=== PATIENT | female | born 1950 | race Caucasian/White ===

== ENCOUNTER 2016-08-22 13:18 | Inpatient (IN) | payer OTHER ==
[~2016-08-22] VITALS: Ht 165.1 cm; Wt 49.7 kg
--- NOTE | 2016-08-22 13:31 | NUR ---
BROUGHT IN BY AMBULANCE ALS, PER PARAMEDICS PT HAD SEIZURE ACTIVITY, WITNESSED BY FAMILY AND EMS,WAS GIVEN VERSED, ON ARRIVAL UNRESOPNSIVE ,PER PARAMEDICS FIRE STATED PT WAS MOVING ALL HER EXTREMITIES PRIOR TO SEIZURES,HAD 3 WITTNESSED SEIZURES,
--- NOTE | 2016-08-22 13:34 | NUR ---
TO CT SCAN
--- NOTE | 2016-08-22 13:40 | NUR ---
BESIDES BED, STATED SINCE FEBRUARY 2016 STARTED TO LOOSE HER HEARING
[2016-08-22 14:07] LABS: BASOPHIL % 0.3 % (0-2)
[2016-08-22 14:09] LABS: PLATELET COUNT 69 x10^3mcL (130-400)
--- NOTE | 2016-08-22 14:12 | NUR ---
RESONDS TO PAINFUL STIMULIBY WITHDRAWAL,
--- NOTE | 2016-08-22 14:13 | NUR ---
PRAKASH CATHETER INSERTED URINE SENT TO LAB
[2016-08-22 14:15] LABS: CALCIUM 7.9 mg/dL (8.5-10.1); CARBON DIOXIDE 21.3 mmol/L (21-32); CHLORIDE SERUM 98 mmol/L (98-107); CREATININE SERUM 0.7 mg/dL (0.6-1.0); GFR1 > 60 mL/min; GLUCOSE SERUM 257 mg/dL (74-106); POTASSIUM SERUM 3.8 mmol/L (3.5-5.1); SODIUM SERUM 131 mmol/L (136-145)
[2016-08-22 14:17] LABS: microscopic required? NO
[2016-08-22 14:19] LABS: ALKALINE PHOSPHATASE 87 U/L (46-116); ALT/SGPT 32 U/L (14-59); AST/SGOT 26 U/L (15-37); BILIRUBIN TOTAL 0.89 mg/dL (0.20-1.00)
[2016-08-22 14:25] LABS: ALBUMIN 2.5 g/dL (3.4-5.0); TOTAL PROTEIN, SERUM 5.7 g/dL (6.4-8.2)
[2016-08-22 14:26] LABS: CHOLESTEROL 90 mg/dL (<200)
[2016-08-22 14:49] LABS: UA SPECIFIC GRAVITY 1.015 (1.005-1.035); urine erythrocyte NEGATIVE (NEGATIVE)
[2016-08-22 14:57] LABS: T4(THYROXINE) 8.8 ug/dL (4.7-13.3)
[2016-08-22 15:09] LABS: AMPHETAMINE QUAL UR NONE DETECTED (NEG <=1000)
--- NOTE | 2016-08-22 15:57 | NUR ---
MORE AWAKE ALND ALERT, DOES NOT FOLLOW VERBAL COMMANDS, PER MILDRED DOES NOT HEAR,OPENS EYES SPONTANOUSLY
[2016-08-22] MEDS ORDERED: PROTONIX40 MG PO (16:22)
[2016-08-22] MEDS ORDERED: LEVOTHYROXIN0.025 M2 PO (16:23)
[2016-08-22] MEDS ORDERED: GLIMEPIRIDE1 M1 PO (16:23)
[2016-08-22] MEDS ORDERED: LASIX40 MG PO (16:23)
[2016-08-22] MEDS ORDERED: ALDACTONE25 MG PO (16:23)
[2016-08-22] MEDS ORDERED: KLOR-CON M1010 MEQ PO (16:24)
[2016-08-22] MEDS ORDERED: LACTULOSE10 GM/152 PO (16:25)
[2016-08-22 17:00] VITALS: BP 103/54
--- NOTE | 2016-08-22 17:15 | NUR ---
RECEIVED PT FROM ED VIA R[place]D. ORIENTED PT TO ROOM AND SURROUNDINGS. IV NOTED TO RIGHT WRIST PATENT AND INTACT. TELE 35 PLACED ON PT READING NSR. INSTRUCTED PT ON THE USE OF CALL LIGHT FOR ASSISTANCE. ENDORSD PT TO PRIMARY NURSE FRANKI
[2016-08-22 17:22] LABS: CHOLESTEROL/HDL RATIO 1.8; MAGNESIUM 1.6 mg/dL (1.8-2.4)
[2016-08-22 17:29] LABS: FREE T4 1.61 ng/dL (0.76-1.46); FREE THYROXINE INDEX 3.1 ug/dL (1.4-4.5); T4(THYROXINE) 8.4 ug/dL (4.7-13.3)
[2016-08-22 17:30] LABS: T3 TOTAL 0.51 ng/mL
[2016-08-22 17:34] VITALS: BP 103/54
--- NOTE | 2016-08-22 19:10 | NUR ---
REC'D PT RESTING IN BED. PT IS APHASIC. UNABLE TO FOLLOW COMMAND AND HOULTON. TELE #35 NSR. NO DISTRESS NOTED. NO SIGNS OF PAIN NOTED. LUNG SOUNDS CLEAR. NO SOB NOTED. BS ACTIVE X4. PRAKASH CATHETER IN PLACE DRAINING YELLOW URINE. PT ON AIR MATTRESS. IVF INFUSING TO RW PER DOCTOR'S ORDER. INTACT AND PATENT. SAFETY AND COMFORT MEASURES IN PLACE. BED IN LOWEST POSITION. CALL LIGHT WITHIN REACH. WILL CONTINUE TO MONITOR.
--- NOTE | 2016-08-22 19:30 | NUR ---
REC'D CALL FROM LAB. PT'S LACTIC ACID = 2.3. DR MALDONADO MADE AWARE.
[2016-08-22 21:27] VITALS: BP 105/56
--- NOTE | 2016-08-22 22:42 | NUR ---
REC'D CALL FROM LAB. PT'S 2ND TROPONIN = 4.303. DR MALDONADO MADE AWARE.
--- NOTE | 2016-08-23 01:33 | NUR ---
PT MOANING/GROANING WITH FACIAL GRIMACING. TORADOL 15 MG IV WAS GIVEN (SEE MAR).
--- NOTE | 2016-08-23 03:30 | NUR ---
PT'S AND SON ARE AT BEDSIDE. DR MALDONADO ORDERED HEPARIN DRIP FOR ELEVATED TROPONIN. PT'S AND SON ARE CONCERNED HEPARIN MAY CAUSE DAMAGE TO PT DUE TO POSSIBILITY OF STROKE. AND SON WISH TO SPEAK TO A DOCTOR FOR FURTHER QUESTIONS. DR MALDONADO MADE AWARE.
--- NOTE | 2016-08-23 04:00 | NUR ---
HEPARIN DRIP IS NOT STARTED PER FAMILY'S REQUESTS. DR MALDONADO IS AWARE.
--- NOTE | 2016-08-23 04:54 | NUR ---
PT RESTING IN BED. NO DISTRESS NOTED. IVF INFUSING WELL. CALL LIGHT WITHIN REACH. WILL CONTINUE TO MONITOR.
[2016-08-23 05:23] VITALS: BP 118/56
[2016-08-23 06:39] LABS: BASOPHIL % 0.2 % (0-2); CALCIUM 8.1 mg/dL (8.5-10.1); CARBON DIOXIDE 28.1 mmol/L (21-32); CHLORIDE SERUM 103 mmol/L (98-107); CREATININE SERUM 0.6 mg/dL (0.6-1.0); GFR1 > 60 mL/min; GLUCOSE SERUM 117 mg/dL (74-106); MAGNESIUM 2.1 mg/dL (1.8-2.4); PHOSPHOROUS 3.3 mg/dL (2.5-4.9); POTASSIUM SERUM 3.3 mmol/L (3.5-5.1); SODIUM SERUM 137 mmol/L (136-145)
--- NOTE | 2016-08-23 07:05 | NUR ---
RECEIVED REPORT FROM NEO ROUSSEAU RN. PATIENT RESTING IN BED WITH EYES CLOSED, TELE # [address] ON ROOM AIR, NO DISTRESS NOTED, LUNGS CTA. PRAKASH IN PLACE DRAINING YELLOW URINE. ON AIR MATTRESS. IV TO RIGHT WRIST IN PLACE. FAMILY AT THE BEDSIDE.
[2016-08-23 07:11] LABS: PLATELET COUNT 59 x10^3mcL (130-400)
--- NOTE | 2016-08-23 08:04 | NUR ---
ROUNDS MADE THIS TIME. DR. CORDERO, RESIDENT TEAM, COUNTY ADMINISTRATOR MANUEL, PRIMARY RN, , AND SON AT THE BEDSIDE. PLAN OF CARE IS DISCUSSED. QUESTIONS AND CONCERNS ADDRESSED. FAMILY WILL NOTIFY RN OF DECISION TO INITIATE HEPARIN DRIP.
--- NOTE | 2016-08-23 08:50 | NUR ---
REPORTED TO DR. CARPIO K 3.3 AT THIS TIME.
--- NOTE | 2016-08-23 09:35 | NUR ---
NOTIFIED DR. CARPIO BP 104/53, OK TO HOLD AM BP MEDS AT THIS TIME (SEE EMAR). ALSO REPORTED TO DR. CARPIO THE PATIENT'S FAMILY DECIDED TO INITIATE THE HEPARIN DRIP.
[2016-08-23 09:40] VITALS: Ht 165.1 cm; Wt 49.7 kg
[2016-08-23 10:13] VITALS: BP 104/53
--- NOTE | 2016-08-23 10:30 | NUR ---
HEPARIN DRIP AT 600 UNITS/HR INITIATED AND HEPARIN BOLUS OF 3000 UNITS GIVEN AT THIS TIME. VERIFIED BY LILLIAN MACIAS. FAMILY IS AT THE BEDSIDE.
--- NOTE | 2016-08-23 11:46 | NUR ---
P.T. NOTES RECEIVED P.T. EVAL ORDER, HOLD P.T. EVAL TODAY; NURSE AWARE; PER CHART, ELEVATED TROPONIN; Pt's DAUGHTERS AT BEDSIDE, CONTACT ISOL PREC OBSERVED; FAMILY STATES Pt WAS AMBULATORY W/ FWW IN MAR 2016, THEN GRADUALLY DECLINED IN FUNCTION, HAS W/C, BSC, SHOWER CHAIR AT HOME, LIVES W/ & DAUGHTER, BEDROOM DOWNSTAIRS; CALL GRIFFITHS, PHONE, TABLE IN REACH; FOLLOW UP Thursday08/25/16. PVE
--- NOTE | 2016-08-23 14:32 | NUR ---
DR. CARPIO IN TO SEE PATIENT AND FAMILY TO DISCUSS PLAN OF CARE. ALL QUESTIONS AND CONCERNS ADDRESSED.
--- NOTE | 2016-08-23 17:17 | NUR ---
PTT 107.8. HEPARIN HELD AT THIS TIME, PER HEPARIN PROTOCOL.
--- NOTE | 2016-08-23 18:17 | NUR ---
HEPARIN DRIP RESTARTED AT THIS TIME. NOW INFUSING AT 400 UNITS PER HR.
[2016-08-23 18:25] VITALS: BP 104/52
--- NOTE | 2016-08-23 19:00 | NUR ---
REC'D PT RESTING IN BED WITH FAMILY AT BEDSIDE. PT IS APHASIC AND [place]. NOT ABLE TO MAKE NEEDS KNOWN. SEIZURE PRECAUTION IN PLACE. TELE #35 NSR. NO SIGNS OF PAIN OR DISCOMFORT NOTED. LUNG SOUNDS CLEAR. NO SOB NOTED. PRAKASH CATHETER IN PLACE. PT IS ON AIR MATTRESS. BEDBOUND. BLANCHABLE REDNESS TO COCCYX. HEP DRIP INFUSING TO RW AT 400 UNITS/HR. INTACT AND PATENT. SAFETY AND COMFORT MEASURES IN PLACE. NEUTROPENIC PRECAUTION IN PLACE. BED IN LOWEST POSITION. CALL LIGHT WITHIN REACH. WILL CONTINUE TO MONITOR.
--- NOTE | 2016-08-23 19:35 | NUR ---
REC'D CALL FROM LAB. TROPONIN 1.[address] BHARDWAJ MADE AWARE.
--- NOTE | 2016-08-23 19:41 | NUR ---
HEPARIN DRIP DC'D ORDERED.
[2016-08-23 20:45] VITALS: BP 111/52
--- NOTE | 2016-08-23 20:46 | NUR ---
FAMILY REPORTS PT IS IN PAIN AND REQUESTING PAIN MEDS. NORCO WAS GIVEN (SEE MAR).
--- NOTE | 2016-08-24 01:10 | NUR ---
PT MOANING/GROANING. MEDICATED PT WITH MORPHINE 2MG IVP (SEE MAR). WILL CONTINUE TO MONITOR.
--- NOTE | 2016-08-24 05:03 | NUR ---
PT RESTING IN BED IN NO ACUTE DISTRESS. IVF INFUSING WELL. CALL LIGHT WITHIN REACH. WILL CONTINUE TO MONITOR.
[2016-08-24 06:37] LABS: BASOPHIL % 0.6 % (0-2)
[2016-08-24 06:38] VITALS: BP 114/56
[2016-08-24 06:45] LABS: CALCIUM 8.1 mg/dL (8.5-10.1); CARBON DIOXIDE 21.7 mmol/L (21-32); CHLORIDE SERUM 109 mmol/L (98-107); CREATININE SERUM 0.6 mg/dL (0.6-1.0); GFR1 > 60 mL/min; GLUCOSE SERUM 75 mg/dL (74-106); MAGNESIUM 1.7 mg/dL (1.8-2.4); PHOSPHOROUS 3.2 mg/dL (2.5-4.9); POTASSIUM SERUM 3.6 mmol/L (3.5-5.1); SODIUM SERUM 142 mmol/L (136-145)
[2016-08-24 06:52] LABS: PLATELET COUNT 82 x10^3mcL (130-400); RED CELL DISTRIBUTION WIDTH 18.3 % (11.5-14.5)
--- NOTE | 2016-08-24 08:00 | NUR ---
RECIEVED PATIENT ALERT AND ORIENTED ONLY TO PERSON. BERENICE HAS FAMILY AT BEDSIDE AND THEY ARE INVOLVED IN HER CARE. PATIENT HAS BEEN SLEEPING WELL THROUGHOUT THE NIGHT. LUNGS ARE DIMMINISHED AND BOWEL SOUNDS ACTIVE. PATIENT HAS PRAKASH TO GRAVITY AND URINE IS OZZIE IN COLOR. CORNELIO HAS BEEDN IN REVERSE ISOLATION, NETROPENI. VITALS AT THIS TIME AT 98.2, 87, 16, 114/56, 99% ON ROOM AIR. NOTED LABS ARE PTTA T 107.8 AND HEPARIN WAS DISCONTINUED AND PLAVIX IS HELD DUE TO THE PLAN FOR SPINAL TAP. PATIENT AHS PLATLET COUGH OF 82 AND BLOOD SUGAR AT 83 THIS AM. PATIENT DOES NOT APPEAR TO BE IN PAIN AT THIS TIME. CONTINUE DON AIR MATTRESS. LEVAQUIN CONTINUED AND NO ADVERSE REACTION NOTED. CONTINUED ON IV FLUIDS ORDERED.
--- NOTE | 2016-08-24 08:15 | NUR ---
SEEN BY THE INTERNS AND RESIDENT. PLAN OF CARE DISCUSSED AND FAMILY WAS PRESWENT. PATIENT TO HAVE A HOLD ON THE PLAVIX FOR NOW.
[2016-08-24 09:55] VITALS: BP 126/66
--- NOTE | 2016-08-24 12:00 | NUR ---
INSULIN GIVEN PER SLIDING SCALE. PATIENT IS WITH FAMILY AT BEDSIDE AND PATIENT IS INSISTING TO HELP GIVE MEDICATIONS AND HE HAS ADVISED ABOUT HER PAIN TO THE RIGHT LEG AND HOW TO POSITION HER FOR COMFORT. PATIENT HAD RECEIVED MORPHINE PER THE REQUEST HE WANT THE STRONGEST MEDICATION FOR HER PAIN. SHE DOES APPEAR COMFORTABLE AT THIS TIME.
[2016-08-24 14:15] VITALS: BP 109/50
--- NOTE | 2016-08-24 14:25 | NUR ---
FAMILY WANTS TO KNOW WHAT THE LAST TROPONIN WAS. EXPLAINTED THAT ONLY THREE AWER DONE IN A ROW FOR VERIFICATION. THE LAST WAS AT 1800 LAST NIGHT. LANCE WAS SEEN BY DR BOO LAST NIGHT AND TODAY AND NO NEW ORDER FOR TROPONIN HAS BEEN RECIEVED. NEW FAMILY AT BEDSIDE AND THEY WANT HER REPOSITIONED. HAS LEFT THE BEDSIDE FOR NOW. PATIENT IS WITH POSITIONAL PAIN AND WILL TRY TO POSITION FOR THE PATIENT BEST COMFORT.
[2016-08-24 17:20] VITALS: BP 110/46
--- NOTE | 2016-08-24 17:34 | NUR ---
GAVE MEDICATION FOR PAIN, MORPHINE. PATIENT WAS CRYING. PATIENT BLOOD SUGAR AT 1700 AT 223A ND GAVE 6 UNITS OF REGULAR ORDERED. WILL MONITOR FOR EFFECTIVENESS. PATIENT WITH FAMILY AT BEDSIDE AND SUPPORTIVE WITH CARE.
--- NOTE | 2016-08-24 19:00 | NUR ---
REC'D PT RESTING IN BED WITH FAMILY AT BEDSIDE. PT IS NON VERBAL AND QUECHAN. SEIZURE PRECAUTION IN PLACE. TELE #35 NSR. NO SIGNS OF PAIN NOTED. LUNG SOUNDS CLEAR. NO SOB NOTED. BS ACTIVE X4. PRAKASH CATHETER IN PLACE DRAINING YELLOW URINE. PT ON AIR MATTRESS. BLANCHABLE REDNESS TO COCCYX. IVF INFUSING TO RW PER DOCTOR'S ORDER. INTACT AND PATENT. SAFETY AND COMFORT MEASURES IN PLACE. BED IN LOWEST POSITION. CALL LIGHT WITHIN REACH. WILL CONTINUE TO MONITOR.
--- NOTE | 2016-08-24 20:51 | NUR ---
PT MOANING AND FAMILY REQUESTING PAIN MEDICATION. NORCO GIVEN ORDERED (SEE MAR).
[2016-08-24 21:01] VITALS: BP 106/49
[2016-08-25] VITALS (11 sets, daily range): BP systolic 95–153; BP diastolic 48–91
--- NOTE | 2016-08-25 04:53 | NUR ---
PT RESTING IN BED. NO SIGNIFICANT CHANGES DURING SHIFT. IVF INFUSING WELL. CALL LIGHT WITHIN REACH. WILL CONTINUE TO MONITOR.
[2016-08-25 06:57] LABS: BASOPHIL % 0.2 % (0-2)
[2016-08-25 07:08] LABS: CALCIUM 7.9 mg/dL (8.5-10.1); CARBON DIOXIDE 24.6 mmol/L (21-32); CHLORIDE SERUM 101 mmol/L (98-107); CREATININE SERUM 0.5 mg/dL (0.6-1.0); GFR1 > 60 mL/min; GLUCOSE SERUM 87 mg/dL (74-106); MAGNESIUM 1.6 mg/dL (1.8-2.4); PHOSPHOROUS 3.3 mg/dL (2.5-4.9); POTASSIUM SERUM 3.2 mmol/L (3.5-5.1); SODIUM SERUM 133 mmol/L (136-145)
[2016-08-25 07:19] LABS: PLATELET COUNT 73 x10^3mcL (130-400); RED CELL DISTRIBUTION WIDTH 18.7 % (11.5-14.5)
--- NOTE | 2016-08-25 07:38 | NUR ---
PT IS A+OX2, APHASIC, SEIZURE PRECAUTIONS, TELE #35, IN NO APPRANT PAIN, PULSES MODERATE AND EQUAL BILATERALLY, SCDS PRESENT, LUNG SOUNDS CLEAR, TOLERATING ROOM AIR, BOWEL SOUNDS ACTIVE, PRAKASH INTACT, DRAINING CLEAR, YELLOW URINE, GENERALIZED WEAKNESS, R LEG ROTATED INWARD, AIR MATTRESS PRESENT, BLANCHEABLE REDNESS ON COCCYX, IV IN RW WITH NS @100 ML/HR, SITE WNL, WBC 3.3, RBC 3.43, HGB 10.3, HCT 32, PLT 73, NA 133, K 3.2, BUN 6.0, CR 0.5, CA 7.9, MG 1.6.
[2016-08-25] MEDS ORDERED: ZES5 PO (08:45)
[2016-08-25] MEDS ORDERED: ATORVASTATIN CA40 M1 PO (08:45)
[2016-08-25] MEDS ORDERED: TYL325 PO (08:46)
[2016-08-25] MEDS ORDERED: LORAZEPAM0.5 MG PO (08:55)
--- NOTE | 2016-08-25 09:41 | NUR ---
PT RESTING IN BED, MOANING LOUDLY, TEARFUL, COMPLAINING OF PAIN, NORCO GIVEN. WILL CONTINUE TO MONITOR PT PAIN.
--- NOTE | 2016-08-25 10:18 | NUR ---
PHYSICAL THERAPY IN ROOM TO WORK WITH PT.
--- NOTE | 2016-08-25 11:23 | NUR ---
INFORMED DR CARPIO THAT PT UNABLE TO SWALLOW PO PILLS AND FAMILY REFUSING TO GIVE HER PO PILLS OF POTASSIUM.
--- NOTE | 2016-08-25 12:01 | NUR ---
PT NOT TO BE DISCHARGED TODAY, PER PHYSICAL THERAPY, PT CANNOT HOLD HER OWN WEIGHT, STAND ON HER OWN, OR AMBULATE. DR CARPIO IN TO SPEAK WITH PT FAMILY.
--- NOTE | 2016-08-25 12:49 | NUR ---
PT SITTING UP IN BED, NO RESPIRATORY DISTRESS NOTED, EATING LUNCH, ASSISTED BY HER , IN NO APPARANT PAIN.
--- NOTE | 2016-08-25 14:39 | NUR ---
PT RESTING IN BED, NO RESPIRATORY DISTRESS NOTED, PT FAMILY STATES PT PAIN LEVEL IS TOLERABLE AT THIS TIME.
--- NOTE | 2016-08-25 15:00 | NUR ---
PT SALINE LOCKED AND TAKEN OFF UNIT VIA GUERNEY FOR LUMBAR PUNCTURE.
--- NOTE | 2016-08-25 16:30 | NUR ---
PT BACK ON UNIT FROM LUMBAR PUNCTURE, 1 DRESSING ON LOWER BACK, CDI, VITAL SIGNS STABLE.
--- NOTE | 2016-08-25 16:36 | NUR ---
PT RESTING IN BED, NO RESPIRATORY DISTRESS NOTED, MOANING LOUDLY AND IN APPARANT PAIN, NORCO GIVEN.
--- NOTE | 2016-08-25 17:48 | NUR ---
PER DR CROWLEY, OK TO SIT PT UP FOR DINNER AND OK FOR PT TO EAT. PT RESTING IN BED, NO RESPIRATORY DISTRESS NOTED, IN NO APPRARANT PAIN.
[2016-08-25 18:16] LABS: SOURCE FLUID CSF
[2016-08-25 18:17] LABS: APPEARANCE CSF CLEAR; COLOR CSF COLORLESS; RBC CSF 103 /cumm (0); VOLUME CSF 23.5 mL; WBC CSF 2.22 /cumm (0-5)
--- NOTE | 2016-08-25 18:36 | NUR ---
PT MOANING LOUDLY, IN APPARANT PAIN, NORCO GIVEN. NO RESPIRATORY DISTRESS NOTED. PT TOLERATED DINNER WELL.
--- NOTE | 2016-08-25 19:37 | NUR ---
PT SEEN, RESTING IN THE BED, AWAKE AND APHASIC, SZ PRECAUTION IN PLACE, BREATHING EVEN AND UNLABORED, NO SOB, LUNG SOUNDS CLEAR ON ROOM AIR WITH NO RESP DISTRESS NOTED, ON TELE#35 NSR, DENIES CHEST PAIN, PULSES PALPABLE, NO EDEMA NOTED, GENERALIZED WEAKNESS, BEDBOUND, OLD IV SITE INFILTRATED, RE-INSERTED TO RFA WITH 22G, ABD SOFT AND FLAT WITH ACTIVE BS, NO BM AT THIS TIME, PRAKASH VIA GRAVITY DRAINING YELLOW URINE, NO DISTRESS NOTED, WILL KEEP TO MONITOR.
--- NOTE | 2016-08-25 21:32 | NUR ---
PT HAD LARGE FORMED BM, CLEANED AND PRAKASH CARE GIVEN, Z-GUARD APPLIED, PT RE-POSITIONED.
--- NOTE | 2016-08-25 23:30 | NUR ---
FOUND PT IS MOANING AND TEARING, C/O OF PAIN, NORCO 1 TAB VIA ORAL ADMINISTERED.
--- NOTE | 2016-08-26 01:39 | NUR ---
PT IS TEARING AND MOANING LOUDLY, C/O OF PAIN, MORPHINE 2MG VIA IVP ADMINISTERED.
--- NOTE | 2016-08-26 05:17 | NUR ---
PT AWAKE MOST OF NIGHT, MAONING AND TEARING AT THIS TIME, NORCO 1 TAB VIA ORAL ADMINISTERED, ON AIR MATTRESS, IVF INFUSING WELL, SCD TO BLE, MORNING BLOOD SUGAR-99 MG/DL WITH NO RISS, BED ALARM ON, NO DISTRESS NOTED, WILL KEEP TO MONITOR.
[2016-08-26 05:21] VITALS: BP 107/52
[2016-08-26 06:27] LABS: CALCIUM 7.9 mg/dL (8.5-10.1); CARBON DIOXIDE 23.6 mmol/L (21-32); CHLORIDE SERUM 100 mmol/L (98-107); CREATININE SERUM 0.5 mg/dL (0.6-1.0); GFR1 > 60 mL/min; GLUCOSE SERUM 88 mg/dL (74-106); POTASSIUM SERUM 3.7 mmol/L (3.5-5.1); SODIUM SERUM 132 mmol/L (136-145)
--- NOTE | 2016-08-26 06:46 | NUR ---
TELE MONITOR DC'D, PER MD'S ORDER.
--- NOTE | 2016-08-26 07:33 | NUR ---
PT IS AWAKE ALERT, TRACKS WITH EYES. APHASIC. MED SURG PT. OULSES EQUAL BILATERAL NO EDEMA NOTED. LUNGS CTA, RA. TEVIN TONES ACTIVE IN ALL QUADS. PRAKASH IN PACE. AIR MATTRESS AND SZ PRECAUTIONS IN PLACE. BLANCHABLE REDNESS TO COCCYX. IV TO THE RFA, PATENT AND INFUSING. PT IS CALM AND COOPERATIVE WITH CARE. CALL LIGHT IN REACH WILL CONTINUE TO MONITOR.
--- NOTE | 2016-08-26 08:30 | NUR ---
ENTERED PTS ROOM, PT SHAKING HAS UNILATERAL LEFT SIDED FACIAL DROOP, AND DROOLING FROM MOUTH, PT SAT UP 90 DEGREES. O2 PLACED ON PT AT 2L VIA NC. SUCTION EQUIPMENT PLCED ON STANDBY. VS TAKEN TEMP 97.5 125/55 MAP OF 78 O2 99, AND PULSE OF 82. 2 MG ATIVAN ADMINISTERED PER DR ORTIZ. SEIZURE PRECAUTIONS IN PLACE. CHARGE NURSE MADE AWARE.
--- NOTE | 2016-08-26 08:45 | NUR ---
RT IN TO SEE PT, PT PLACED ON 15 L VIA NON REBREATHER. VSS, PT DROWSY NON VERBAL.
[2016-08-26 09:44] VITALS: BP 123/58
--- NOTE | 2016-08-26 11:08 | NUR ---
PT RESTING IN BED, RATTLING SOUNDS UNPON INSPIRATION, ATTEMPTED TO SUCTION PT NO OUTPUT. VS STABLE. PT ON 15 LITER NON REBREATHER, FAMILY AT BEDSIDE. TELE [address] CROWLEY MADE AWARE OF PTS BREATHING PATTERN, AND CONTINOUS TWITCHING. CALL LIGHT IN REACH WILL CONTINUE TO MONITOR.
--- NOTE | 2016-08-26 13:08 | NUR ---
PT RSTING IN BED DROWSY BUT ROUSIBLE WITH MUCH STIMULI. VSS, FAMILY AT [facility] WILL CONTINUE TO MONITOR.
--- NOTE | 2016-08-26 14:08 | NUR ---
PT NOTES CHART REVIEWED AND CLEARED FOR PT BY RN. PATEINT IN HIGHFOWLER POSITION RESTING WITH FAMILY. PATIENTS FAMILY ASKED TO HOLD OFF THERAPY D/T HAVING SEIZURE IN MORNING, NO OTHER NEEDS EXPRESSED AT THIS TIME. RN AWARE. PVEx1
[2016-08-26 15:46] VITALS: BP 123/58
[2016-08-26 15:55] VITALS: BP 130/47
--- NOTE | 2016-08-26 16:53 | NUR ---
REPORT CALLED AND GIVEN TO TERRI AT [facility] [place]. ALL DISCHARGE PAPERWORK SIGNED AND IN THE CHART. BANDS REMOVED FROM PT, TELE CLEANED AND RETURNED TO MONITOR ROOM. ALL BELONGINGS TAKEN WITH PT. ROOM CHAGED TO 344A PT, PTS FAMILY AND TRANSPORT MADE AWARE. PHOTO TAKEN OF PTS SACRAL AREA TAKEN AND IN THE CHART. PT STABLE FOR TRANSFER VSS.
--- NOTE | 2016-08-26 17:02 | NUR ---
PT DISCHARGED WITH IV AND PRAKASH CATH IN PLACE. REPORT GIVEN TO PRISCA.
== END 2016-08-26 16:45 | disposition short-term general hospital (02) | DRG 100 ==
LOC: ED 13:18 → DU 15:45 → MU 15:45 → DU 16:51 → MU 08-26 06:42 → DU 08-26 09:23 → MU 08-26 09:25
PROVIDERS: Emergency Medicine; Specialist; ADMIT Family Medicine
PROC: 009U3ZX Drainage of Spinal Canal, Percutaneous Approach, Diagnostic (ICD-10-PCS; principal; 2016-08-25)
PROC: B01B1ZZ Fluoroscopy of Spinal Cord using Low Osmolar Contrast (ICD-10-PCS; 2016-08-25)
DX: R56.9 Unspecified convulsions (principal); K72.01 Acute and subacute hepatic failure with coma; E43 Unspecified severe protein-calorie malnutrition; I24.8 Other forms of acute ischemic heart disease; E87.1 Hypo-osmolality and hyponatremia; D61.818 Other pancytopenia; E11.65 Type 2 diabetes mellitus with hyperglycemia; E11.51 Type 2 diabetes mellitus with diabetic peripheral angiopathy without gangrene; I25.10 Atherosclerotic heart disease of native coronary artery without angina pectoris; I69.992 Facial weakness following unspecified cerebrovascular disease; I69.919 Unspecified symptoms and signs involving cognitive functions following unspecified cerebrovascular disease; K74.60 Unspecified cirrhosis of liver; D69.59 Other secondary thrombocytopenia; D64.9 Anemia, unspecified; E05.90 Thyrotoxicosis, unspecified without thyrotoxic crisis or storm; F03.90 Unspecified dementia, unspecified severity, without behavioral disturbance, psychotic disturbance, mood disturbance, and anxiety; E03.9 Hypothyroidism, unspecified; Z99.3 Dependence on wheelchair; Z79.84 Long term (current) use of oral hypoglycemic drugs
CPT/HCPCS: 62272; 82962; 83880; 84439; 87046; 87046-59; G0480; J1644; J1885; J1956; J2060; J2270; J3475; J7030; J7040; Q0092